=== PATIENT | female | born 1975 | race Caucasian/White ===

== ENCOUNTER → 2016-07-10 | Outpatient (CLI) | payer BC, OTHER ==
[~2016-07-10] MED LIST: ALPRAZOLAM PO; ANUSOL-HC SUPP25 MG; HYDROCHLOROTHIA25 MG PO; NORVASC PO; PRILOSEC40 MG; PRILOSEC40 MG PO; VOLTAREN75 MG PO
--- NOTE | ~2016-07-10 | US77 ---
[facility] A Service of [facility] RADIOLOGY TEXT RESULTS PATIENT: TAQUERIA LUCAS LOCATION: [facility] : 79 UNIT #: [id number] AGE: [address]: Octavio Camacho MD SEX: F ORDER DR: [id number] [place] [id number] O MR#: [id number] Acc #: [id number] NAME: TAQUERIA LUCAS : 1975 SEX: F STUDY DATE/TIME: 07/10/2016 9:59 UNIT: [facility] ROOM: STUDY DESCRIPTION: US Kidney Bilateral Complete Attending Physician: Octavio Camacho M.D. Referring Physician: Octavio Camacho M.D. Ordering Physician: Octavio Camacho M.D. Primary Care Physician: Colette Vicente A.P.R.N. MEDICAL IMAGING REPORT This report is preliminary unless electronic signature is present. EXAM Renal ultrasound INDICATION Followup renal calculi. PROCEDURE Santamaria-scale and Doppler imaging of the kidneys and bladder. COMPARISON CT from 04/04/2016 FINDINGS The right kidney measures 10.5 cm. There is a 5.0 mm calculus in the right mid kidney. There is a 3.0 mm calculus lower pole right kidney. Left kidney measures 11.5 cm. There is a 3.0 mm calculus in the left kidney. The previously demonstrated large staghorn calculus on the left is not seen. The bladder is decompressed. No hydronephrosis. IMPRESSION 1. Small nonobstructing calculi in the right and left kidney. 2. Previously demonstrated large calculus on the left is not seen. 3. No hydronephrosis. 1. Dictated by... Leoncio Santana M.D. THIS IS AN ELECTRONICALLY VERIFIED REPORT Leoncio Santana M.D. at 07/12/2016 7:14 AM Josue [facility] A Service of [facility] RADIOLOGY TEXT RESULTS PATIENT: TAQUERIA LUCAS LOCATION: [facility] #: [id number] : 79 UNIT #: [id number] AGE: [address]: Octavio Camacho MD SEX: F ORDER DR: TD: 07/10/2016 15:26 JOB #: [id number] MEDICAL IMAGING REPORT Page 1 of 1
== END | disposition home or self-care (01) ==
LOC: SGUS 09:40
DX: N20.0 Calculus of kidney (principal)
CPT/HCPCS: 76775

== ENCOUNTER → 2017-01-09 | Outpatient (CLI) | payer BC ==
--- NOTE | ~2017-01-09 | CT4 ---
[facility] A Service of [facility] RADIOLOGY TEXT RESULTS PATIENT: TAQUERIA LUCAS LOCATION: [facility] : 79 UNIT #: [id number] AGE: [address]: Octavio Camacho MD SEX: F ORDER DR: [id number] [place] [id number] O MR#: [id number] Acc #: [id number] NAME: TAQUERIA LUCAS : 1975 SEX: F STUDY DATE/TIME: 01/09/2017 12:59 UNIT: [facility] ROOM: STUDY DESCRIPTION: CT Abd and Pelv Wo Cont Attending Physician: Octavio Camacho M.D. Referring Physician: Octavio Camacho M.D. Ordering Physician: Octavio Camacho M.D. Primary Care Physician: Vipul Swift M.D. MEDICAL IMAGING REPORT This report is preliminary unless electronic signature is present. EXAM CT of the abdomen and pelvis without contrast. INDICATION Left-sided kidney stone removal in April of 2016. Currently, the patient does not have any complaints of pain. She did have a CT performed on April 04, 2016, which showed a staghorn calculus within the left lower pole of the left kidney. TECHNIQUE Axial CT images were obtained from the dome of the diaphragm through the symphysis pubis. No oral or intravenous contrast material was administered. This CT exam was performed with one or more of the following radiation dose reduction techniques: automatic exposure control, adjustment of mA and/or kV according to patient size, and iterative reconstruction. FINDINGS Images through the lung bases are clear. Patient does have some residual stone within the lower pole of the left kidney, it measures about 7 x 6 mm but certainly is significantly smaller than on the prior study when it measured up to 1.6 x 1.5 cm, no hydronephrosis is identified. Patient does have some punctate nonobstructing stones on the right as well as some dystrophic calcifications on the right. I don't see any distal ureteral or bladder stones. Liver and gallbladder appear unremarkable. The stomach and proximal small bowel are within normal limits as are the adrenal glands and pancreas. Patient does have some stranding within the mesentery with some prominent mesenteric nodes, similar findings were present in March of 2016, and [facility] A Service of [facility] RADIOLOGY TEXT RESULTS PATIENT: TAQUERIA LUCAS LOCATION: [facility] : 79 UNIT #: [id number] AGE: [address]: Octavio Camacho MD SEX: F ORDER DR: the appearance is stable. Shotty retroperitoneal nodes are also stable when compared to the prior study. There is a small fat-containing umbilical hernia. The appendix is visualized and is within normal limits. Uterus is heterogeneous likely reflecting the presence of underlying fibroids. No free fluid or adenopathy is seen within the pelvis. Unopacified GI tract appears unremarkable. Review of bony windows does not demonstrate any aggressive osseous abnormalities. IMPRESSION 1. Significant interval improvement in the previously identified staghorn calculus within the lower pole of the left kidney. It now measures about 7 x 6 mm, previously 1.6 x 1.5 cm. No hydronephrosis is seen. No distal ureteral or bladder stones are identified. 2. Patient does appear to have a few punctate nonobstructing stones within the right kidney. There are also some parenchymal calcifications associated with some areas of cortical thinning. 3. Stranding within the mesentery along with some shotty mesenteric nodes nonspecific but stable when compared to March 2016. Clinical significance is uncertain, suspect it is probably a benign finding given its stability since March of 2016, but would suggest a followup CT in March of 2018. 3. Suspected uterine fibroids. 4. The appendix is visualized and is within normal limits. Dictated by... Claritza Grayson M.D. THIS IS AN ELECTRONICALLY VERIFIED REPORT Claritza Grayson M.D. at 01/10/2017 12:48 PM AFF/jrosa maria TD: 01/09/2017 19:25 JOB #: [id number] MEDICAL IMAGING REPORT Page 1 of 1
[2017-01-09 13:36] LABS: BUN/CREATININE RATIO 24.28; CREATININE SERUM 0.7 mg/dL (0.6-1.4); GLOM FILT RATE Estimated 109.1 mL/min (>60); POTASSIUM 5.2 mmol/L (3.5-5.1)
== END | disposition home or self-care (01) ==
LOC: SCT 12:44
PROVIDERS: Urology
DX: N20.0 Calculus of kidney (principal)
CPT/HCPCS: 36415; 74176; 80048